=== PATIENT | male | born 1975 | race Caucasian/White ===

== ENCOUNTER → 2017-08-31 | Outpatient (CLI) | payer OTHER ==
[~2017-08-31] MED LIST: CIPRO 500MG TA500 MG PO; DIAZEPAM5 M1 PO; FLEXERIL10 MG PO; HYDROCODONE/ACE1 TA5 PO; IBU800 MG; MEDROL 4MG. DOSE4 MG PO; NOMEDS; PERCOCET 5/3251 EACH PO; PERCOCET1 TA1; PROTONIX 40MG T40 MG PO; STERAPRED DS10 MG PO; TRAMADOL 50MG T1 PAK PO
[2017-08-31 18:50] LABS: HEMOGLOBIN 16.5 g/dL (14.1-18.0); LYMPH % 24.6 % (10-50)
[2017-08-31 19:50] LABS: BUN 15 mg/dL (7-18)
[2017-08-31 20:13] LABS: GFR (ESTIMATED) 73 ML/MIN (>60)
== END ==
LOC: RT 18:20 → LAB 18:20
PROVIDERS: Podiatrist
DX: M20.22 Hallux rigidus, left foot (principal); Z01.810 Encounter for preprocedural cardiovascular examination; Z01.811 Encounter for preprocedural respiratory examination; Z01.812 Encounter for preprocedural laboratory examination

== ENCOUNTER 2017-09-02 06:57 | Day surgery (SDC) | payer OTHER ==
[~2017-09-02] VITALS: Ht 188 cm; Wt 104.3 kg
[~2017-09-02 06:57] MED LIST changes: -IBU800 MG; -PERCOCET1 TA1
--- NOTE | 2017-09-02 07:57 | RADIOLOGY REPORT PS360 ---
CHEST-PORTABLE HISTORY: Preop for foot surgery PT IN PREOP BAY #2 ORDERING PHYSICIAN: GREGORIO URBAN DPM PATIENT AGE: 42 years COMPARISON: None available FINDINGS: The cardiomediastinal silhouette and pulmonary vascularity are within normal limits. The lungs are clear without infiltrates, suspicious nodules, or pleural effusions. No acute bony abnormalities. IMPRESSION: Negative chest, no acute finding
--- NOTE | 2017-09-02 10:41 | Operative Note-Podiatry ---
Procedure/Operative Record Procedure DATE OF PROCEDURE 09/02/17 PREOPERATIVE DIAGNOSIS Left Hallux Rigidus POSTOPERATIVE DIAGNOSIS Same as Preop Dx PROCEDURE PERFORMED Left First Metatarsal Phalangeal Joint Arthrodesis SURGEON Gregorio Garcia DPM ANESTHESIA General 0.5% marcaine plain 30cc EBL (ml) 20 OPERATIVE NOTE/DISCHARGE/PLAN Indication for Procedure: Mr. Zavala is a 42 y/o male who presents with pain to the left great toe joint. He complains of pain and stiffness to left 1st MPJ with activity, walking. Radiographs of the foot show severe arthritis, joint destruction with osteophytes and spurring. The patient has tried modification of shoe gear, taping, strapping, inserts, ice, elevation, injections, and NSAIDs. After a long discussion with the patient in regards to the conservative vs. surgical treatment for the arthritis deformity, the patient has elected to proceed with surgery because they have failed conservative treatment and continue to have pain and worsening symptoms affecting daily activities. We discussed implant/met head resurfacing versus fusion. Patient did not want potentially multiple surgeries. Fusion was the recommended procedure. The patient has been instructed on the planned procedure, all the risks vs. benefits of the procedure to include bleeding, infection, nerve and blood vessel damage, need for further surgery, delay in healing of soft tissue or bone, failure of the bones to heel, non-union , mal-union, prolonged pain and recovery, residual deformity, prolonged swelling , CRPS/RSD, dvt, and anesthetic complications. No guarantees were given. All questions fully answered. The patient verbalized understanding and agreed to proceed with surgery. Consent was obtained. On this date and time patient was deemed an appropriate surgical candidate. With informed consent signed, the patient was taken to the operating theater. The patient was positioned supine. General anesthesia was induced. Tourniquet was applied to the left mid-calf x 69 mins. Left First Metatarsal Phalangeal Joint Arthrodesis: The left lower extremity was prepped and draped in normal sterile fashion. Attention was directed to the 1st metatarsophalangeal joint (MPJ), where a dorsal linear incision was mapped out extending proximal from the HIPJ to proximal on the met shaft. The tourniquet was inflated at 225 mmHg. Dissection was carried thru skin and subcutaneous tissue with care taken to maintain surgical hemostasis and safely retract neurovascular structures. Dissection was then carried through deep fascia linearly over the 1st MPJ, exposing the met head. There was severe arthritic changes noted with wearing down of the cartilage on both the metatarsal head and proximal phalanx. And there was a large joint osteophyte noted which was removed. Dorsal as well as medial, lateral spurring noted. Sesamoids were also noted to be arthritic. Soft tissue surrounding the first MPJ was released. A McGlamry elevator was used to pass underneath the metatarsal heads releasing more of the contracture. Utilizing hand instrumentation in the form of ronguer, the osteophytes were removed and some of the spurs were resected. Next utilizing reamers the base of the proximal phalanx and the metatarsal head were prepared. The remaining portion of the cartilage was removed. The subchondral plate was broken and then utilizing 0.062 K wire the joint was fenestrated down to the level of good healthy cancellous bleeding bone. Power round bur was used to smooth the joint and remaining spurring. The wound was flushed with copious amounts of saline. At this point, the joint was reduced and temporary fixation inserted. Position was checked under intra-op fluoroscopy. [employer] Cross Check plate with interfrag screw was inserted in standard echnique. 2.7mm screws x 2 were inserted distally into the proximal phalanx. This was followed by a 3.5mm intra-fragmentary compression screw followed by 2 x 3.5mm screws into the metatarsal. Good apposition and position was noted. X- ray confirmed position and hardware stable. The wound was flushed. Attention was directed distally to the HIPJ, where ronguer and power luis was used to remove the dorsal spurring. Wound was once again flushed with copious amounts of saline. 2-0 Vicryl was used to close deep tissue in a running fashion. 15 blade was used to resect the redundant tissue dorsal medial with a ganglion cyst had been. 3-0 Vicryl was used to close subq layer in a running fashion. Viaflow was inserted into the incision. Then the skin was closed with 4-0 Nylon in an interrupted mattress fashion. The tourniquet was deflated after 69 mins and immediate hyperemic response was noted to the digits. The wounds were cleansed. Xeroform, dry sterile dressing was then applied. The patient was awoken from anesthesia and transferred to recovery with vital signs stable and neurovascular status intact. Specimen: None Materials: [employer]/Cross Check plate and 3.5mm and 2.7mm locking screws x 2 each [employer] 3.5mm partially threaded compression screw x 1 Viaflow Discharge/Plan: D/C home today when ready and vital signs stable. Patient is to maintain dressing clean dry and intact. Ice top of left foot and elevate on two pillows. NWB to the left lower extremity with forefoot offloading post op shoe and crutches. Rx for Percocet 7.5/325, Zofran, Motrin given. Start vitamin D supplement. Obtain post op films, left foot, 3 views. Follow up with me in 1 week. at 1043
--- NOTE | 2017-09-02 10:43 | Anesthesia Record ---
Anesthesia Record Part I Total IV fluids: 1800 EBL (ml): 0 Urine Output: 0 B/P: 136/93 % SaO2: 93 Pulse: 71 Resps: 12 Temp: 99 Patient is: Awake, Stable Stable to PACU at: 1040 at 1046
--- NOTE | 2017-09-02 10:43 | Anesthesia Record ---
Anesthesia Record Part II Discharge time: 1120 Destination: Same day surgery PACU nurse assessment review? Yes Patient is: Awake, Stable Anesthesia complications? No at 1045
--- NOTE | 2017-09-02 11:43 | RADIOLOGY REPORT PS360 ---
FOOT-LT-3 VIEWS HISTORY: Follow-up surgery POSTOP XRAYS 3 VIEWS LEFT FOOT ORDERING PHYSICIAN: GREGORIO URBAN DPM PATIENT AGE: 42 years COMPARISON: 07/05/2017 FINDINGS: Status post arthrodesis of the first metatarsophalangeal joint with a dorsal bone plate placed with good alignment of the first metatarsal and proximal phalanx. There has been trimming of bone spur of the distal first metatarsal with a small amount soft tissue gas. IMPRESSION: Postsurgical changes with arthrodesis of the first metatarsophalangeal joint with good alignment
--- NOTE | 2017-09-02 11:44 | RADIOLOGY REPORT PS360 ---
TOE-LT-1ST DIGIT(GREAT)-3VIEWS HISTORY: 1ST METATARSAL REPAIR ORDERING PHYSICIAN: GREGORIO URBAN DPM PATIENT AGE: 42 years COMPARISON: 07/05/2017 FINDINGS: 3 images submitted show interval placement of a bone plate at the first metatarsophalangeal junction with trimming of bone spurs at the distal first metatarsal.. There is good alignment. IMPRESSION: Postsurgical changes with placement of a bone plate at the first metatarsophalangeal junction with trimming of bone spurs at the distal first metatarsal.. There is good alignment
[2017-09-02 13:33] VITALS: BP 118/68
[2017-09-08] MEDS ORDERED: PERCOCET1 TA1 (13:22)
[2017-09-08] MEDS ORDERED: IBU800 MG (13:22)
== END 2017-09-02 12:27 | disposition home or self-care (01) ==
LOC: SDC 06:57
PROVIDERS: Podiatrist
PROC: 0SGN04Z Fusion of Left Metatarsal-Phalangeal Joint with Internal Fixation Device, Open Approach (ICD-10-PCS; principal; 2017-09-02 08:30)
DX: M20.22 Hallux rigidus, left foot (principal)
CPT/HCPCS: C1713; C1776; J2405